=== PATIENT | male | born 1945 | race Caucasian/White ===

== ENCOUNTER 2024-02-26 05:29 | Emergency (ER) | payer MEDICARE ==
[2024-02-26 06:02] LABS: BILIRUBIN,URINE NEGATIVE (NEGATIVE); GLUCOSE, URINE (UA) 500 mg/dL (NEGATIVE); KETONES,URINE (UA) 15 mg/dL (NEGATIVE); LEUKOCYTE ESTERASE, URINE TRACE (NEGATIVE); NITRITE,URINE POSITIVE (NEGATIVE); OCCULT BLOOD,URINE TRACE-INTA (NEGATIVE); PH,URINE 5.5 PH (5.0-7.5); PROTEIN,URINE 30 mg/dL (NEGATIVE); UROBILINOGEN,URINE 0.2 (NORMAL) E.U./dL (NORMAL)
[2024-02-26 06:15] LABS: BACTERIA,URINE Moderate /HPF (None Seen); CLARITY,URINE HAZY (CLEAR); SQUAMOUS EPITHELIAL CELL,UR RARE Squamous (<= Few); WBC,URINE >25 /HPF (0-3)
--- NOTE | 2024-02-26 06:25 | ED Physician Documentation ---
History of Present Illness - Stated complaint Stated Complaint: - Chief complaint Chief Complaint: Abd Pain - History obtained from History obtained from: Patient - Additonal information Additional information: 78-year-old man with recent Plummer catheter presents with dysuria, increased frequency and suprapubic discomfort. Denies fever or back pain. PD PAST MEDICAL HISTORY - Past Medical History Past Medical History: Yes Respiratory: Asthma Endocrine/Autoimmune: Type 2 diabetes : Retention Other Past Medical History: Sport's atletic Induced asthma - Past Surgical History Past Surgical History: Yes Derm: Other - Present Medications Home Medications: Ambulatory Orders Medication Instructions Recorded Confirmed Cefpodoxime Proxetil [Vantin] 200 mg PO Q12H #28 tablet 02/26/24 - Allergies Allergies/Adverse Reactions: Allergies Allergy/AdvReac Type Severity Reaction Status Date / Time No Known Drug Allergies Allergy Verified 02/26/24 05:49 - Social History Does the pt smoke?: No Smoking Status: Never smoker Does the pt drink ETOH?: No Does the pt have substance abuse?: No - Immunizations Immunizations are current?: Yes - POLST Patient has POLST: No PD ED PE NORMAL - Vitals Vital signs reviewed: Yes - General General: Alert and oriented X 3, No acute distress, Well developed/nourished - HEENT HEENT: Atraumatic, PERRL, EOMI - Abdomen Abdomen: Non tender, Non distended - Back Back: No CVA TTP Results - Vitals Vitals: Vital Signs - 24 hr 02/26/24 02/26/24 05:35 06:04 Temperature 36.6 C Heart Rate 109 H 109 H Respiratory 18 Rate Blood Pressure 133/57 H O2 Saturation 96 Oxygen O2 Source Room air - Labs Labs: Laboratory Tests 02/26/24 05:55 Urine Color YELLOW Urine Clarity HAZY Urine pH 5.5 Ur Specific [place] Path 1.025 Urine Protein 30 H Urine Glucose (UA) 500 H Urine Ketones 15 H Urine Occult Blood TRACE-INTA Urine Nitrite POSITIVE H Urine Bilirubin NEGATIVE Urine Urobilinogen 0.2 (NORMAL) Ur Leukocyte Esterase TRACE H Urine RBC 6-10 H Urine WBC >25 H Ur Squamous Epith Cells RARE Squamous Urine Bacteria Moderate H Ur Microscopic Review INDICATED Urine Culture Comments INDICATED PD Medical Decision Making - ED course ED course: 78-year-old man presents with urinary tract infection, treated with Vantin in the ED. Prescription sent to pharmacy. Plan to follow-up with urology. Return precautions given. Departure - Departure Disposition: 01 Home, Self Care Clinical Impression: UTI (urinary tract infection) Condition: Stable Instructions: ED UTI Cystitis Male Prescriptions: Cefpodoxime Proxetil [Vantin] 200 mg PO Q12H #28 tablet Comments: You were seen in the emergency department for UTI. Antibiotic prescription was printed for you. Please follow-up with your primary care provider and return to the emergency department if you have any new or worsening symptoms or other concerns. Forms: PCP List
[2024-02-26] MEDS: CEFPODOXIME PROXETIL 100 MG TABLET PO STA (06:31)
[2024-02-26 06:46] VITALS: BP 135/62; O2SAT 97
== END 2024-02-26 06:46 | disposition home or self-care (01) ==
LOC: ED 05:29
DX: N39.0 Urinary tract infection, site not specified (principal); J45.909 Unspecified asthma, uncomplicated; E11.9 Type 2 diabetes mellitus without complications
CPT/HCPCS: 81001; 87077; 87086; 87181; 99283; A9270; 81003

== ENCOUNTER 2024-03-06 19:00 | Emergency (ER) | payer MEDICARE, OTHER ==
[2024-03-06 19:31] LABS: BASOPHILS # (AUTO) 0.1 10^3/uL (0.0-0.1); BASOPHILS % (AUTO) 0.8 %; EOSINOPHILS # (AUTO) 0.4 10^3/uL (0.0-0.7); EOSINOPHILS % (AUTO) 4.4 %; HCT - HEMATOCRIT 39.4 % (42.0-52.0); HGB - HEMOGLOBIN 13.3 g/dL (14.0-18.0); LYMPHOCYTES # (AUTO) 1.3 10^3/uL (1.5-3.5); LYMPHOCYTES % (AUTO) 13.6 %; MEAN CORPUSCULAR HEMOGLOBIN 30.6 pg (27.0-31.0); MEAN CORPUSCULAR HGB CONC 33.8 g/dL (32.0-36.0); MEAN CORPUSCULAR VOLUME 90.6 fL (80.0-94.0); MEAN PLATELET VOLUME 8.7 fL (7.4-11.4); MONOCYTES # (AUTO) 0.4 10^3/uL (0.0-1.0); MONOCYTES % (AUTO) 4.8 %; NEUTROPHILS % (AUTO) 75.4 %; PLT - PLATELET COUNT 349 10^3/uL (130-450); RED BLOOD COUNT 4.35 10^6/uL (4.70-6.10); WHITE BLOOD COUNT 9.2 x10^3/uL (4.8-10.8)
[2024-03-06 19:34] LABS: BILIRUBIN,URINE NEGATIVE (NEGATIVE); GLUCOSE, URINE (UA) 100 mg/dL (NEGATIVE); KETONES,URINE (UA) TRACE mg/dL (NEGATIVE); LEUKOCYTE ESTERASE, URINE NEGATIVE (NEGATIVE); NITRITE,URINE NEGATIVE (NEGATIVE); OCCULT BLOOD,URINE NEGATIVE (NEGATIVE); PH,URINE 5.5 PH (5.0-7.5); PROTEIN,URINE NEGATIVE (NEGATIVE); UROBILINOGEN,URINE 0.2 (NORMAL) E.U./dL (NORMAL)
[2024-03-06 19:36] LABS: CLARITY,URINE CLEAR (CLEAR)
[2024-03-06] MEDS ORDERED: iohexoL-300 100 ML VIAL ONE (19:44)
[2024-03-06 19:46] LABS: ALBUMIN 4.3 g/dL (3.2-5.5); ALBUMIN/GLOBULIN RATIO 1.5 (1.0-2.2); BILIRUBIN,TOTAL 0.5 mg/dL (0.2-1.0); CALCIUM 9.1 mg/dL (8.5-10.3); POTASSIUM 4.3 mmol/L (3.5-4.5); TOTAL PROTEIN 7.1 g/dL (6.4-8.9)
--- NOTE | 2024-03-06 19:56 | ED Physician Documentation ---
PD HPI ABD PAIN - Stated complaint Stated Complaint: RT SIDE ABD PX - Chief complaint Chief Complaint: Abd Pain - History obtained from History obtained from: Patient - History of Present Illness Associated symptoms: No: Fever, Nausea, Vomiting, Hematemesis, Diarrhea, Constipation, Melena, Hematochezia, Dysuria - Additional information Additional information: Patient is a 78-year-old male who presents to the emergency department with right lower quadrant abdominal pain x 2 weeks. Has been mostly constant. He states it started closer to his bellybutton and is moved over to the right flank. Has had an umbilical hernia repair in the past, denies any other abdominal surgeries. No fevers. No chills. Nausea or vomiting. Was recently treated with ciprofloxacin for a UTI. Has an appoint with his PCP tomorrow, his PCP wanted him to come to the ER tonight for a CAT scan. No changes to his appetite. He is scheduled for a TURP in 2 weeks. Review of Systems Constitutional: denies: Fever, Chills GI: denies: Vomiting, Diarrhea : denies: Dysuria, Frequency, Hesitancy Skin: denies: Rash Musculoskeletal: denies: Neck pain, Back pain Neurologic: denies: Headache PD PAST MEDICAL HISTORY - Past Medical History Past Medical History: Yes Respiratory: Asthma Neuro: None Endocrine/Autoimmune: Type 2 diabetes : Benign prostate hypertrophy, Retention HEENT: None Psych: Depression Musculoskeletal: None - Past Surgical History Past Surgical History: Yes Derm: Skin cancer surgery, Other - Present Medications Home Medications: Ambulatory Orders Medication Instructions Recorded Confirmed Albuterol Sulfate [Proair 2 puffs IH Q4HR PRN 02/26/24 03/06/24 Respiclick] Insulin Glargine [Lantus Solostar] 26 units SUBQ DAILY 02/26/24 03/06/24 Metformin HCl [Metformin ER 3 tab PO QPM 02/26/24 03/06/24 Osmotic] Semaglutide [Ozempic] 0.25 mg SUBQ 02/26/24 Tamsulosin HCl [Flomax] 1 cap PO DAILY 02/26/24 03/06/24 Venlafaxine HCl [Effexor Xr] 1 cap PO DAILY 02/26/24 03/06/24 Atorvastatin Calcium 40 mg PO DAILY 03/06/24 03/06/24 Ciprofloxacin HCl [Cipro] 500 mg PO BID 03/06/24 03/06/24 - Allergies Allergies/Adverse Reactions: Allergies Allergy/AdvReac Type Severity Reaction Status Date / Time No Known Drug Allergies Allergy Verified 03/06/24 19:06 - Social History Does the pt smoke?: No Smoking Status: Never smoker Does the pt drink ETOH?: No Does the pt have substance abuse?: No - Immunizations Immunizations are current?: Yes - POLST Patient has POLST: No PD ED PE NORMAL - Vitals Vital signs reviewed: Yes - General General: Alert and oriented X 3, No acute distress - HEENT HEENT: Moist mucous membranes - Cardiac Cardiac: RRR, Strong equal pulses - Respiratory Respiratory: No respiratory distress, Clear bilaterally - Abdomen Abdomen: Soft, Non distended, Other (Mild tenderness over the right flank. No CVA tenderness. Otherwise benign exam) - Back Back: No CVA TTP, No spinal TTP - Derm Derm: Warm and dry - Neuro Neuro: Alert and oriented X 3 - Psych Psych: Normal mood, Normal affect Results - Vitals Vitals: Vital Signs - 24 hr 03/06/24 03/06/24 03/06/24 19:06 19:26 20:17 Temperature 36.1 C L Heart Rate 84 77 74 Respiratory 18 16 16 Rate Blood Pressure 139/73 H 133/78 H 140/93 H O2 Saturation 97 96 97 03/06/24 21:00 Temperature 36.5 C Heart Rate 80 Respiratory 16 Rate Blood Pressure 137/80 H O2 Saturation 100 Oxygen O2 Source Room air - Labs Labs: Laboratory Tests 03/06/24 03/06/24 03/06/24 19:25 19:25 19:25 WBC 9.2 RBC 4.35 L Hgb 13.3 L Hct 39.4 L MCV 90.6 MCH 30.6 MCHC 33.8 RDW 14.0 Plt Count 349 MPV 8.7 Neut # (Auto) 7.0 H Lymph # (Auto) 1.3 L Coal # (Auto) 0.4 Eos # (Auto) 0.4 Baso # (Auto) 0.1 Absolute Nucleated RBC 0.00 Nucleated RBC % 0.0 Sodium 137 Potassium 4.3 Chloride 100 L Carbon Dioxide 32 Anion Gap 5.0 L BUN 19 Creatinine 1.0 Estimated GFR (MDRD) 72 L Glucose 161 H Calcium 9.1 Total Bilirubin 0.5 AST 21 ALT 25 Alkaline Phosphatase 92 Total Protein 7.1 Albumin 4.3 Globulin 2.8 Albumin/Globulin Ratio 1.5 Lipase 12 Urine Color YELLOW Urine Clarity CLEAR Urine pH 5.5 Ur Specific [place] >=1.030 H Urine Protein NEGATIVE Urine Glucose (UA) 100 H Urine Ketones TRACE Urine Occult Blood NEGATIVE Urine Nitrite NEGATIVE Urine Bilirubin NEGATIVE Urine Urobilinogen 0.2 (NORMAL) Ur Leukocyte Esterase NEGATIVE Ur Microscopic Review NOT INDICATED Urine Culture Comments NOT INDICATED - Rads (name of study) CT abdomen pelvis Relevant Findings:: Final report received, See rad report PD Medical Decision Making - ED course Complexity details: reviewed results, re-evaluated patient, considered differential, d/w patient ED course: 78-year-old male with right-sided abdominal pain x 2 weeks. Unclear etiology. No acute findings on CT scan. There is thickening of the right adrenal gland, will follow-up with his PCP regarding this. No evidence of adrenal gland hemorrhage. No significant lab abnormalities. No acute findings on urinalysis. Patient is very well-appearing, nontoxic. Afebrile. Tolerating p.o. without difficulty. We will continue supportive care and he will follow-up with his PCP as scheduled in the morning. Patient counseled regarding signs and symptoms for which I believe and urgent re-evaluation would be necessary. Patient with good understanding of and agreement to plan and is comfortable going home at this time This document was made in part using voice recognition software. While efforts are made to proofread this document, sound alike and grammatical errors may occur. Departure - Departure Disposition: 01 Home, Self Care Clinical Impression: Abdominal pain Qualifiers: Abdominal location: unspecified location Qualified Code(s): R10.9 - Unspecified abdominal pain Condition: Good Instructions: ED Abdominal Pain Unkn Cause Male Follow-Up: Jimmy Junior MD [Primary Care Provider] - Tomorrow Comments: Your CBC, complete metabolic panel and urinalysis did not show any significant abnormalities other than a mildly elevated glucose and mild glucose in your urine, 100. There is no other signs of infection. Your CT scan does not show any acute abnormalities, but you do have some slight thickening of your right adrenal gland, this can be followed up with your doctor. Your appendix is normal. There is no diverticulitis. No bowel obstruction. Please return if you worsen. EXAM: [id number] CT/ABPEW ([id number]) PROCEDURE: Abdomen/Pelvis W INDICATIONS: RLQ pain x 2 weeks CONTRAST: 100ml [id number] TECHNIQUE: After the administration of intravenous contrast, a CT scan of the abdomen and pelvis was performed. Images were recorded and evaluated at appropriate window settings. Reformats: coronal and sagittal. For radiation dose reduction, the following was used: automated exposure control, adjustment of mA and/or kV according to patient size. COMPARISON: None. FINDINGS: Image quality: Diagnostic. Lower chest: Right basilar atelectasis. No pleural effusion. Asymmetric elevation of the right hemidiaphragm. Liver: No solid mass. Several cyst. Gallbladder: Absent. Biliary tree: No intrahepatic or extrahepatic dilation, accounting for age. Spleen: No splenomegaly. Pancreas: No pancreatic ductal dilation. Adrenals: Thickening of the right adrenal gland. Kidneys and ureters: No hydronephrosis. No renal cystic lesion which requires follow up. Simple left renal cyst measuring 5.3 cm. No solid mass. Stomach, bowel and peritoneum: No gastric or small bowel dilation. No abnormal wall thickening. No pathologic free fluid. Diverticulosis. Normal appendix. Lymph nodes: No central or retroperitoneal adenopathy. Vessels: No infrarenal aortic aneurysm. Patent portal vein. PELVIS Reproductive organs: Unremarkable. Bladder: No abnormal wall thickening, accounting for underdistention. Pelvic lymph nodes: No pelvic adenopathy by size criteria. Bones: No aggressive osseous abnormality. Other: No significant ventral or inguinal hernia. IMPRESSION: 1. Normal appendix. No free fluid. 2. Diverticulosis. No diverticulitis. 3. Thickening of the right adrenal gland. This could be due to adrenal hyperplasia or small adenoma. Forms: PCP List Discharge Date/Time: 03/06/24 21:04
[2024-03-06] MEDS: iohexoL-300 100 ML VIAL IVP ONE (20:11)
--- NOTE | 2024-03-06 20:29 | CT Report ---
PROCEDURE: Abdomen/Pelvis W INDICATIONS: RLQ pain x 2 weeks CONTRAST: 100ml [id number] TECHNIQUE: After the administration of intravenous contrast, a CT scan of the abdomen and pelvis was performed. Images were recorded and evaluated at appropriate window settings. Reformats: coronal and sagittal. F or radiation dose reduction, the following was used: automated exposure control, adjustment of mA and /or kV according to patient size. COMPARISON: None. FINDINGS: Image quality: Diagnostic. Lower chest: Right basilar atelectasis. No pleural effusion. Asymmetric elevation of the right hemidi aphragm. Liver: No solid mass. Several cyst. Gallbladder: Absent. Biliary tree: No intrahepatic or extrahepatic dilation, accounting for age. Spleen: No splenomegaly. Pancreas: No pancreatic ductal dilation. Adrenals: Thickening of the right adrenal gland. Kidneys and ureters: No hydronephrosis. No renal cystic lesion which requires follow up. Simple left renal cyst measuring 5.3 cm. No solid mass. Stomach, bowel and peritoneum: No gastric or small bowel dilation. No abnormal wall thickening. No pa thologic free fluid. Diverticulosis. Normal appendix. Lymph nodes: No central or retroperitoneal adenopathy. Vessels: No infrarenal aortic aneurysm. Patent portal vein. PELVIS Reproductive organs: Unremarkable. Bladder: No abnormal wall thickening, accounting for underdistention. Pelvic lymph nodes: No pelvic adenopathy by size criteria. Bones: No aggressive osseous abnormality. Other: No significant ventral or inguinal hernia. IMPRESSION: 1. Normal appendix. No free fluid. 2. Diverticulosis. No diverticulitis. 3. Thickening of the right adrenal gland. This could be due to adrenal hyperplasia or small adenoma. Reviewed by: Smith Be MD on 03/06/2024 8:27 PM PDT Approved by: Smith Be MD on 03/06/2024 8:27 PM PDT Station ID: [id number]
[2024-03-06 21:14] VITALS: BP 137/80; O2SAT 100
== END 2024-03-06 21:04 | disposition home or self-care (01) ==
LOC: ED 19:00
DX: R10.9 Unspecified abdominal pain (principal); E11.9 Type 2 diabetes mellitus without complications; J45.909 Unspecified asthma, uncomplicated; Z79.84 Long term (current) use of oral hypoglycemic drugs; Z79.4 Long term (current) use of insulin; F32.A Depression, unspecified; N40.1 Benign prostatic hyperplasia with lower urinary tract symptoms; R33.8 Other retention of urine
CPT/HCPCS: 36415; 74177; 80053; 81003; 83690; 85025; 99283; 99284; Q9967; 81001; 87086